=== PATIENT | male | born 1940 | race Caucasian/White ===

== ENCOUNTER 2021-01-07 14:13 | Emergency (ER) | payer MEDICARE, SELFPAY ==
[2021-01-07 14:14] VITALS: BP 154/96; PULSE 71; RESP 18; TEMP 36.1; O2SAT 97; BMI 25.7
--- NOTE | 2021-01-07 16:08 | EKG12_ITS ---
Test Reason : Blood Pressure : / mmHG Vent. Rate : 057 BPM Atrial Rate : 057 BPM P-R Int : 222 ms QRS Dur : 072 ms QT Int : 424 ms P-R-T Axes : 033 -29 001 degrees QTc Int : 412 ms Sinus bradycardia with 1st degree A-V block Inferior infarct , age undetermined Abnormal ECG Confirmed by SKIP VINCENT, JOVITA ([id number]), assignment desk editor MELVA FLYNN ([id number]) on 01/10/2021 1:32:33 PM Referred By: GABRIEL Confirmed By:LEANN VALDIVIA MD
--- NOTE | 2021-01-07 16:14 | CT_ITS ---
STUDY: CTA CHEST REASON FOR EXAM: Male, 80 years old. Shortness of breath pulmonary embolism evaluation RADIATION DOSAGE (If Supplied By Facility): CTDIvol = ( 10.73 ) mGy, DLP = ( 382.16 ) mGycm TECHNIQUE: The examination was performed with the intravenous administration of IV 100mL Isovue-370. Post-processing of the angiographic images was performed, with multiplanar reformation and 3D reconstruction. Individualized dose optimization techniques were used for this CT. COMPARISON: None. FINDINGS: There is no acute or chronic pulmonary embolism. Aorta is of normal caliber. Coronary arteries are severely diseased. Aortic valve is moderately stenotic. Lungs are clear with mild basal atelectasis. There is no pneumothorax, pulmonary edema or pleural effusions. Mediastinal contents are normal. Osseous structures are intact. Abdominal structures are unremarkable. CT/CTA Chest W/WO Contrast IMPRESSION: 1. No pulmonary embolism 2. No acute pulmonary disease. 3. Severe coronary artery disease. Electronically Signed: Ayla Mckinney MD at 18:03 EDT Tel , Service support ,
--- NOTE | 2021-01-07 16:17 | EX.ED.DYSGE1 ---
HPI History of Present Illness Chief Complaint: Back Informant: patient Narrative Narrative: Patient presents as with discomfort somewhere between his back and his chest. He states he cannot exactly define where it is. He cannot even explain that it hurts. It just feels different than normal. It occurs if he takes a deep breath only. He does not feel lightheaded. He has not been syncopal. He is not dyspneic. He is not coughing. There is no hemoptysis. No leg swelling or pain. He does have a history of melanoma with some spread to multiple areas. He was on chemotherapy for this but evidently it showed complete resolution so he has been off this for months. He has some pain in his lower back that is been chronic and unchanged and his oncologist in [place] knows about this. Patient also came up here from [place] about 6 weeks ago. Patient also has a history of an aortic root aneurysm but he states that it is small. Taking a deep breath makes his symptoms worse. Nothing specifically makes them better. Past medical history: High blood pressure, high cholesterol, aortic root aneurysm, melanoma. Medications include citalopram, unknown blood pressure med, cholesterol medication, vitamin D Patient denies any allergies No recent surgeries Lives with , non-smoker [facility] Medical History HTN (hypertension) Stroke Allergy/AdvReac Type Severity Reaction Status Date / Time No Known Allergies Allergy Verified 01/07/21 14:16 Social History Smoking Status: Never smoker ROS ROS ED Constitutional Constitutional ED: Denies chills, fever(s) or weight loss Eyes Eyes: Denies blurry vision ENT ENT ED: Denies sore throat Cardiovascular Cardiovascular: Reports other Details: See history of present illness. Respiratory/Chest Respiratory/Chest: Denies cough, dyspnea or sputum Gastrointestinal Gastrointestinal: Denies abdominal pain, diarrhea, nausea or vomiting Genitourinary Genitourinary ED: Denies dysuria or hematuria Musculoskeletal Musculoskeletal: Denies arthralgias or myalgias Integumentary Denies abscess, Abrasions or rash Neurologic Neurologic: Denies headache(s) or weakness Psychiatric Psychiatric: Reports depression Endocrine Endocrinology: Denies polydipsia or polyuria Allergic/Immunologic Allergic/Immunologic ED: Denies mouth swelling or urticaria EXAM Physical Exam Const Vital Signs: 01/07/21 14:14 01/07/21 16:30 Temperature 96.9 F L Temperature Source Temporal Pulse Rate 71 60 Respiratory Rate 18 8 L Blood Pressure 154/96 H 164/91 H Blood Pressure Mean 115 115 Pulse Ox 97 95 Oxygen Delivery Method Room Air Positive well nourished and well developed General Appearance ED: well developed and NAD HEENT Negative for trauma Eyes PERRL and EOMs intact bilaterally Eyes Narrative: Pupils are about 2 mm bilaterally and reactive. Neck no lymphadenopathy Chest Wall inspection of chest normal and palpation of chest normal Resp normal respiratory effort and clear to auscultation bilaterally Cardio regular rate and regular rhythm Rate: other Other Details: Patient has a 3 out of 6 systolic ejection murmur which is chronic per patient. GI normal to inspection, nondistended, normoactive bowel sounds and non-tender Palpation: soft Back/Spine no CVA tenderness General Back: CVA tenderness Extremity normal to inspection Extremity Narrative: No edema, cords, tenderness along the deep venous system, distended veins or asymmetry. General Extremety ED: Negative for edema or tenderness General Extremity: Negative for edema Neuro oriented x3 Sensorium / Orientation: alert Psych mental status grossly normal Skin no rashes or lesions noted MDM MDM MDM Narrative Medical decision making narrative: Patient's blood work including CBC electrolytes and troponin are not showing any marked abnormalities. CTA of his chest did not show any acute process. There is significant coronary artery disease. However, his symptoms do not match this and his troponin is negative. Plan will be to go home. He is following up with his oncologist in 10 days. Lab Data Attestation: I reviewed the patient's lab results. Labs: Laboratory Results - last 24 hr 01/07/21 01/07/21 16:20 16:20 WBC 6.4 RBC 4.69 Hgb 13.5 Hct 42.6 MCV 90.8 MCH 28.8 MCHC 31.7 L RDW Std Deviation 49.4 H RDW Coeff of Gadiel 15.0 H Plt Count 220 MPV 11.4 Immature Gran % (Auto) 0.300 Neut % (Auto) 69.3 Lymph % (Auto) 16.5 L Gregg % (Auto) 10.0 Eos % (Auto) 3.4 Baso % (Auto) 0.5 Absolute Neuts (auto) 4.4 Absolute Lymphs (auto) 1.06 Nucleated RBC % 0 Sodium 143 Potassium 4.2 Chloride 109 H Carbon Dioxide 32.0 Anion Gap 2 L BUN 22 H Creatinine 0.93 Estim Creat Clear Calc 57.26 Est GFR (MDRD) Af Amer 100 Est GFR (MDRD) Non-Af 82 BUN/Creatinine Ratio 23.6 H Glucose 109 H Calcium 8.7 Troponin I High Sens 28 Radiography Diagnostic Testing: Radiology Impression Chest CTA 01/07/21 16:14 IMPRESSION: 1. No pulmonary embolism 2. No acute pulmonary disease. 3. Severe coronary artery disease. Electronically Signed: Ayla Mckinney MD at 18:03 EDT Tel , Service support , EKG Initial EKG: Comments: EKG done for chest symptoms read by me shows a sinus rhythm with first-degree AV block and overall rate of 57. No acute ST elevation or depression. Mild baseline variation. Nonspecific diffuse changes. DC interval is long. QRS duration and QTc are normal. Discharge Plan Triage Chief Complaint: Back ED Provider: Kyrie Montanez Dx/Rx/DC Orders Clinical Impression: Dyspnea Instructions: ED Dyspnea Referrals: SVITLANA HOANG [Other] Activity Restrictions/Additional Instructions: Follow-up with your physician as scheduled on the . Disposition Disposition: Home, Self Care
--- NOTE | 2021-01-07 16:20 | NURSING ---
NO OLD EKGS
[2021-01-07 16:30] VITALS: BP 164/91; PULSE 60; RESP 8; O2SAT 95
[2021-01-07 16:31] LABS: Absolute Lymphocyte Count 1.06 X10^3/uL (0.83-4.51); Absolute Neutrophil Count 4.4 X10^3/uL (2.0-7.7); Basophil# 0.03 X10^3/uL; Basophil% 0.5 % (0-1); Eosinophil# 0.22 X10^3/uL; Eosinophils% 3.4 % (0-5); Hematocrit 42.6 % (40-54); Hemoglobin 13.5 g/dL (13.0-16.5); Lymphocyte # 1.06 X10^3/ul (0.83-4.51); Lymphocyte % 16.5 % (19-41); Mean Corp Hgb Conc 31.7 g/dL (32-36); Mean Corpuscular Hgb 28.8 pg (27.0-32.0); Mean Corpuscular Volume 90.8 fL (80-94); Mean Platelet Vol. 11.4 fl (6.2-12.0); Monocyte# 0.64 X10^3/uL; NRBC Flagged by Analyzer 0 % (0-5); Neutrophil # 4.44 X10^3/uL (2.7-7.7); Neutrophil % 69.3 % (47-70); Platelet Count 220 K/mm3 (150-450); RBC Distribution Width SD 49.4 fl (35.1-43.9); Red Blood Count 4.69 M/mm3 (4.6-6.2); White Blood Count 6.4 K/mm3 (4.4-11.0)
[2021-01-07 16:56] LABS: Anion Gap 2 (5-15); BUN 22 mg/dL (7-18); BUN/Creat Ratio 23.6 RATIO (10-20); Calcium,Total 8.7 mg/dL (8.5-10.1); Chloride 109 mmol/L (98-107); Creatinine, Serum 0.93 mg/dL (0.70-1.30); EST Glomerular Filtration Rate 82 mL/min (>60); Est Glom Filt Rate - Afr Amer 100 mL/min (>60); Estimated Creatinine Clearance 57.26 ml/min; Glucose 109 mg/dL (74-106); Potassium 4.2 mmol/L (3.5-5.1); Sodium Level 143 mmol/L (136-145); Troponin-I HS 28 pg/mL (3.0-78.0)
[2021-01-07 18:48] VITALS: BP 157/86; PULSE 59; RESP 18; O2SAT 97
== END 2021-01-07 18:59 | disposition home or self-care (01) ==
PROVIDERS: Emergency Provider Emergency Medicine
DX: R06.00 Dyspnea, unspecified (principal); I44.0 Atrioventricular block, first degree; I25.10 Atherosclerotic heart disease of native coronary artery without angina pectoris; I10 Essential (primary) hypertension; E78.00 Pure hypercholesterolemia, unspecified; Z86.73 Personal history of transient ischemic attack (TIA), and cerebral infarction without residual deficits; Z85.820 Personal history of malignant melanoma of skin
CPT/HCPCS: 71275; 80048; 84484; 85025; 93005; 99284; J7030; Q9967

== ENCOUNTER 2023-01-16 11:46 | Emergency (ER) | payer MEDICARE, SELFPAY ==
[2023-01-16 11:47] VITALS: BP 120/77; PULSE 73; RESP 18; TEMP 36; O2SAT 96; BMI 26.0
--- NOTE | 2023-01-16 11:58 | EDS_ITS ---
HPI History of Present Illness Chief Complaint: Upper Extremity Injury Narrative Narrative: Patient sustained a fall 6 days ago, he hit the back of his elbow, he sustained an abrasion. He slowly developed swelling behind in the olecranon bursa region. No fevers or chills. [facility] Medical History HTN (hypertension) Stroke Home Medications cephalexin 500 mg capsule 500 mg PO Q6 #40 CAPSULES 01/16/23 [Rx Last Taken Unknown] Allergy/AdvReac Type Severity Reaction Status Date / Time No Known Allergies Allergy Verified 01/16/23 11:47 Social History Smoking Status: Never smoker ROS ROS ED ROS Narrative Past medical history: none Medications: Reviewed Social history: Noncontributory Review of systems: Musculoskeletal: Right elbow pain as in HPI Skin: As above. Neurological: No weakness or paresthesias Hematologic: No easy bleeding or easy bruising EXAM Physical Exam Narrative Exam Narrative: Physical exam General: Patient does not appear in significant distress . Head: Normocephalic, Atraumatic Neck: No C-spine tenderness Cardiovascular: Normal distal pulses Back: Nontender, Normal Inspection. Extremities: Right elbow has full range of motion and normal pronation and supination there is minimal bony tenderness most of the pain is in the olecranon bursa, patient has obvious olecranon bursitis, there is some erythema and calor overlying the olecranon bursa. Very small abrasion that is healing. No lymphangitic streaking. Skin: As above Neurological: Normal strength and sensation Const Vital Signs: 01/16/23 11:47 Temperature 96.8 F L Temperature Source Temporal Pulse Rate 73 Respiratory Rate 18 Blood Pressure 120/77 Blood Pressure Mean 91 Pulse Ox 96 Oxygen Delivery Method Room Air MDM MDM MDM Narrative Medical decision making narrative: X-ray read by me as no fracture, there is posterior soft tissue swelling. Procedure note: Drainage of the olecranon bursitis Verbal consent I used iodine to clean, I used an 18-gauge needle to make a puncture into the bursal sac. I expectorated quite a bit of blood there was no pus I cultured Wound care was applied and I put an Jori wrap to prevent reaccumulation Patient tolerated procedure well ED course: I talked to orthopedics, Dr. Carter, who agreed with apparently enough care as far as me doing him drainage of the bursal. Patient will be placed on antibiotics and followed up with him. He had symptomatic improvement at this time as there is no signs of infection however because of the erythema this could be early infection and was treated. Discharge Plan Triage Chief Complaint: Upper Extremity Injury ED Provider: Troy Nance Dx/Rx/DC Orders Clinical Impression: Bursitis, olecranon, Contusion of elbow, Fall Instructions: ED Bursitis Prescriptions: New cephalexin 500 mg capsule 500 mg PO Q6 Qty: 40 0RF Primary Care Provider: Care Physician,No Primary Referrals: Candelario Carter DO [Med Staff - Active Staff] - 3-5 Days NOT,DEFINED [Non-Staff] - Disposition Disposition: Home, Self Care
--- NOTE | 2023-01-16 12:15 | RAD_ITS ---
HISTORY: trauma. TECHNIQUE: XR Elbow Min 3 Views. COMPARISON: None. FINDINGS: BONES : No acute fracture identified. Mineralization unremarkable. JOINTS: No dislocation. Joint spaces maintained. SOFT TISSUES: Large amount of posterior soft tissue swelling. RAD/Elbow min 3 Views IMPRESSION: No acute fracture or dislocation identified in the right elbow. Severe posterior soft tissue swelling or olecranon bursitis. Electronically Signed: Jackie Turpin MD at 12:37 EDT ,
[2023-01-16] MEDS: Cephalexin 250 MG Capsule 500 MG PO (13:07)
== END 2023-01-16 13:18 | disposition home or self-care (01) ==
PROVIDERS: Emergency Provider Emergency Medicine; Visit Provider Emergency Medicine
DX: M70.21 Olecranon bursitis, right elbow (principal); I10 Essential (primary) hypertension; Z86.73 Personal history of transient ischemic attack (TIA), and cerebral infarction without residual deficits; S50.01XA Contusion of right elbow, initial encounter; W19.XXXA Unspecified fall, initial encounter
CPT/HCPCS: 23931; 20610; 73080; 87070; 87205; 99283